=== PATIENT | female | born 1960 | race African-American/Black ===

== ENCOUNTER 2021-10-08 09:37 | Emergency (ER) | payer MEDICAID ==
[~2021-10-08] VITALS: Ht 160 cm; Wt 67.0 kg
[2021-10-08] MEDS ORDERED: LIDOCAINE/PRILOCAINE CREAM 5 GM TUBE TOP ONE (11:15)
[2021-10-08] MEDS ORDERED: LIDOCAINE HCL/EPINEPHRINE 1%-EPI 1:100,000 20 ML VIAL INFIL ONE (11:15)
[2021-10-08] MEDS ORDERED: LIDOCAINE HCL/EPINEPHRINE 1%-EPI 1:100,000 10 ML VIAL INFIL NR (11:30)
[2021-10-08 11:31] LABS: HEMATOCRIT. 29.3 % (36.0-48.0); HEMOGLOBIN. 9.8 g/dL (12.0-16.0); MEAN CORPUSCULAR HEMOGLOBIN 26.7 pg (28.0-32.0); MEAN CORPUSCULAR VOLUME 79.6 fL (81.0-99.0); MEAN PLATELET VOLUME 7.9 fl (7.4-10.4); PLATELET 224 x1000/uL (130-400); RED BLOOD CELL COUNT 3.68 mill/uL (4.2-5.4)
[2021-10-08 11:34] LABS: CHLORIDE 112 mEq/L (98-107)
[2021-10-08 11:56] LABS: PLATELET ESTIMATE NORMAL
[2021-10-08] MEDS ORDERED: SODIUM CHLORIDE 0.9% 1,000 ML IV ONE (12:15)
[2021-10-08] MEDS ORDERED: HEPARIN 100 UNITS/1 ML VIAL IV SCH (14:00)
[2021-10-08] MEDS ORDERED: HEPARIN 1 UNIT/ML(NEONATAL) IJ SCH (14:00)
[2021-10-08] MEDS ORDERED: HYDROMORPHONE HCL 4MG TABLET PO ONE (14:00)
[2021-10-08] MEDS ORDERED: HYDROMORPHONE HCL 4MG TABLET PO SCH (14:15)
[2021-10-08] MEDS ORDERED: LOPERAMIDE HCL 2MG CAPSULE PO ONE ×2 (14:30→16:45)
[2021-10-08 16:15] VITALS: BP 134/64
[2021-10-08] MEDS ORDERED: POTASSIUM CHLORIDE 20MEQ/PACKET PO ONE (16:45)
[2021-10-08] MEDS ORDERED: KETOROLAC 15MG/ML VIAL IV PRN (18:45)
[2021-10-08] MEDS ORDERED: ZOLPIDEM TARTRATE 5MG TABLET PO PRN (18:45)
[2021-10-08] MEDS ORDERED: NITROGLYCERIN 0.4MG TABLET SL SL PRN (18:45)
[2021-10-08] MEDS ORDERED: IPRATROPIUM/ALBUTEROL 0.5-3(2.5)MG/3ML NEB NEB PRN (18:45)
[2021-10-08] MEDS ORDERED: DEXT 5%/0.45% NACL 1000ML 1,000 ML IV SCH (18:45)
[2021-10-08] MEDS ORDERED: ONDANSETRON HCL 4MG/2ML INJ IV PRN (18:45)
[2021-10-08] MEDS ORDERED: DOCUSATE SODIUM 100MG CAPSULE PO PRN (18:45)
[2021-10-08] MEDS ORDERED: GUAIFENESIN 200MG/10ML SUGAR FREE UDC PO PRN (18:45)
[2021-10-08] MEDS ORDERED: ACETAMINOPHEN 325MG TABLET PO PRN ×2 (18:45)
[2021-10-08] MEDS ORDERED: CLONIDINE 0.1MG TABLET PO PRN (18:45)
[2021-10-08] MEDS ORDERED: MAGNESIUM/ALUMINUM HYDROXIDE/SIMETHICONE 30ML UDC PO PRN (18:45)
[2021-10-08] MEDS ORDERED: DEXTROSE 50% WATER 50ML SYRINGE IV PRN (18:45)
[2021-10-08] MEDS ORDERED: FAMOTIDINE 20MG TABLET PO SCH (21:00)
[2021-10-08] MEDS ORDERED: ENOXAPARIN 40MG/0.4ML SYR SUBCUT SCH (21:00)
[2021-10-08] MEDS ORDERED: BLOOD SUGAR DIAGNOSTIC STRIP TEST SCH (21:00)
[2021-10-08] MEDS ORDERED: INSULIN LISPRO 100 UNITS/ML SUBCUT SCH (21:00)
[2021-10-09] MEDS ORDERED: ZINC SULFATE 220 MG ( 50 ) CAPSULE PO SCH (09:00)
[2021-10-09] MEDS ORDERED: ASPIRIN 325MG EC TABLET PO SCH (09:00)
[2021-10-09 19:16] LABS: HEPATITIS B SURFACE ANTIGEN NEGATIVE
== END 2021-10-08 18:37 | disposition home or self-care (01) ==
LOC: ER 09:37
DX: E11.649 Type 2 diabetes mellitus with hypoglycemia without coma (principal); R53.1 Weakness; R41.0 Disorientation, unspecified; I10 Essential (primary) hypertension; R79.89 Other specified abnormal findings of blood chemistry; E87.6 Hypokalemia; E44.0 Moderate protein-calorie malnutrition; G92.9 Unspecified toxic encephalopathy; Z79.4 Long term (current) use of insulin; Z85.07 Personal history of malignant neoplasm of pancreas; Z92.21 Personal history of antineoplastic chemotherapy
CPT/HCPCS: 36415; 71045; 80053; 82962; 83605; 83690; 84460; 84484; 85025; 86703; 86803; 87040; 87340; 93005; 96361; 96374; 99285; J1642; J3490; J7030; Z7610; J1644

== ENCOUNTER 2021-12-11 17:54 | Inpatient (IN) | payer MEDICAID, OTHER ==
[~2021-12-11] VITALS: Ht 162.6 cm; Wt 52.4 kg
[2021-12-11 18:47] LABS: HEMATOCRIT. 29.6 % (36.0-48.0); MEAN CORPUSCULAR HEMOGLOBIN 29.7 pg (28.0-32.0); MEAN CORPUSCULAR VOLUME 87.8 fL (81.0-99.0); MEAN PLATELET VOLUME 8.1 fl (7.4-10.4); PLATELET 213 x1000/uL (130-400); RED BLOOD CELL COUNT 3.37 mill/uL (4.2-5.4); RED CELL DISTRIBUTION WIDTH 17.3 % (11.6-14.6)
[2021-12-11 18:49] LABS: CHLORIDE 107 mEq/L (98-107)
[2021-12-11] MEDS ORDERED: MORPHINE SULFATE 4 MG/ML CPJ (NOT FOR IM USE) IV ONE (19:15)
[2021-12-11 19:47] LABS: PLATELET ESTIMATE NORMAL
[2021-12-11] MEDS ORDERED: ASPIRIN 81MG TABLET PO NR (20:00)
[2021-12-11] MEDS ORDERED: HYDROCODONE/ACETAMINOPHEN 5/325MG TABLET PO PRN (23:45)
[2021-12-11] MEDS ORDERED: ACETAMINOPHEN 325MG TABLET PO PRN (23:45)
[2021-12-11] MEDS ORDERED: ONDANSETRON HCL 4MG/2ML INJ IV PRN (23:45)
[2021-12-11] MEDS ORDERED: CLONIDINE 0.1MG TABLET PO PRN (23:45)
[2021-12-11] MEDS ORDERED: DOCUSATE SODIUM 100MG CAPSULE PO PRN (23:45)
[2021-12-11] MEDS ORDERED: MAGNESIUM/ALUMINUM HYDROXIDE/SIMETHICONE 30ML UDC PO PRN (23:45)
[2021-12-11] MEDS ORDERED: GUAIFENESIN 200MG/10ML SUGAR FREE UDC PO PRN (23:45)
[2021-12-11] MEDS ORDERED: ENOXAPARIN 40MG/0.4ML SYR SUBCUT NR (23:54)
[2021-12-12 06:09] LABS: BASOPHILS % 1.8 % (0.0-2.0); EOSINOPHILS % 4.9 % (0.0-5.0); HEMATOCRIT. 29.9 % (36.0-48.0); LYMPHOCYTES % 54.3 % (20.0-50.0); MEAN CORPUSCULAR HEMOGLOBIN 29.5 pg (28.0-32.0); MEAN CORPUSCULAR VOLUME 87.6 fL (81.0-99.0); MEAN PLATELET VOLUME 8.3 fl (7.4-10.4); MONOCYTES % 12.9 % (2.0-8.0); NEUTROPHILS % 26.1 % (40.0-76.0); PLATELET 211 x1000/uL (130-400); RED BLOOD CELL COUNT 3.41 mill/uL (4.2-5.4)
[2021-12-12] MEDS ORDERED: DEXTROSE 50% WATER 50ML SYRINGE IV PRN (06:15)
[2021-12-12 06:16] LABS: CHLORIDE 107 mEq/L (98-107)
[2021-12-12 06:31] LABS: HDL CHOLESTEROL 73 mg/dL (40-59); LDL CHOLESTEROL 72 mg/dL (5-100)
[2021-12-12] MEDS: BLOOD SUGAR DIAGNOSTIC STRIP TEST SCH ×2 (06:55→12:10)
[2021-12-12] MEDS: INSULIN LISPRO (HIGH DOSE) 100 UNITS/ML SUBCUT SCH ×2 (07:32→14:10)
[2021-12-12 09:00] VITALS: BP 155/105
[2021-12-12] MEDS ORDERED: ASPIRIN 81MG EC TABLET PO SCH (09:00)
[2021-12-12] MEDS ORDERED: AMLODIPINE 10MG TABLET PO SCH (09:00)
[2021-12-12] MEDS ORDERED: HYDROMORPHONE HCL/PF 2MG/ML CPJ IV PRN (09:15)
[2021-12-12] MEDS ORDERED: NALOXONE HCL 0.4MG/ML VIAL IV PRN (09:15)
[2021-12-12] MEDS ORDERED: MORPHINE SULFATE 2 MG/ML CPJ (NOT FOR IM USE) IV PRN (09:30)
[2021-12-12] MEDS ORDERED: CARV12.545 MT (10:30)
[2021-12-12] MEDS ORDERED: LOPE1LIQ42 PO (10:30)
[2021-12-12] MEDS ORDERED: LOPE1TAB46 PO (10:30)
[2021-12-12] MEDS ORDERED: MORP4SYR4 IV (10:33)
[2021-12-12] MEDS ORDERED: POTA20TA82 MT (10:41)
[2021-12-12] MEDS ORDERED: ONDA4TAB11 PO (10:41)
[2021-12-12] MEDS ORDERED: DEXL60CA3 PO (10:41)
[2021-12-12] MEDS ORDERED: HYDR4TAB4 PO (10:41)
[2021-12-12] MEDS ORDERED: INSU100I28 SQ (10:41)
[2021-12-12 12:00] VITALS: BP 151/58
[2021-12-12] MEDS ORDERED: LOPERAMIDE HCL 2MG CAPSULE PO NR (15:00)
[2021-12-12 15:21] VITALS: BP 151/58
[2021-12-12] MEDS ORDERED: ENOXAPARIN 40MG/0.4ML SYR SUBCUT SCH (21:00)
== END 2021-12-12 16:29 | disposition home or self-care (01) | DRG 203 ==
LOC: ER 17:54 → MICUSO 19:22 → EDBEDREQTM 19:42 → EDBEDREQ 19:42 → 8WST 12-12 08:33
PROVIDERS: ADMIT Hospitalist; ATTEND Hospitalist
DX: M94.0 Chondrocostal junction syndrome [Tietze] (principal); C25.9 Malignant neoplasm of pancreas, unspecified; E43 Unspecified severe protein-calorie malnutrition; D63.8 Anemia in other chronic diseases classified elsewhere; E11.9 Type 2 diabetes mellitus without complications; G89.29 Other chronic pain; I10 Essential (primary) hypertension; Z85.07 Personal history of malignant neoplasm of pancreas; Z68.1 Body mass index [BMI] 19.9 or less, adult
CPT/HCPCS: 36415; 71045; 80053; 80061; 82962; 83880; 84484; 85025; 93306; 93970; 99285; J1650; J1815; J2270; J2405